=== PATIENT | male | born 1970 ===

== ENCOUNTER → 2022-06-06 07:34 | Outpatient (CLI) | payer OTHER, SELFPAY ==
--- NOTE | ~2022-06-06 | MR_ITS ---
MRI of the right knee Clinical history: Pain Technique: Coronal proton density and proton density-weighted images, sagittal proton-density and T2 fat-sat images, and axial proton-density fat-saturated images were acquired. Findings: Anterior and posterior cruciate ligaments are intact. Medial collateral ligament and the la teral collateral ligament complex are intact. Popliteus tendon is intact. There is horizontal/oblique tear of the posterior horn of the medial meniscus. No lateral meniscal te ar identified. Articular cartilage is well preserved in the medial lateral compartments. There is moderate chondroma lacia centrally the femoral trochlea. Patellar articular cartilage is intact. Bone marrow signals are unremarkable. Extensor mechanism is intact. Small joint effusion present, with minimal Santana's cyst. Impression: Horizontal/oblique tear of the posterior horn of the medial meniscus. 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 Reviewed, dictated and finalized at [facility]. [employer] Impression: Horizontal/oblique tear of the posterior horn of the medial meniscus. 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
== END ==
PROVIDERS: PCP Physician Assistant; Visit Provider Physician Assistant
DX: M25.561 Pain in right knee (principal); S83.241A Other tear of medial meniscus, current injury, right knee, initial encounter; M94.261 Chondromalacia, right knee
CPT/HCPCS: 73721